=== PATIENT | female | born 1990 | race Caucasian/White ===

== ENCOUNTER 2019-05-14 04:56 | Inpatient (IN) | payer OTHER ==
[2019-05-14] MEDS ORDERED: Betamethasone Acetate/Betamethasone Sod Phosphate 30 MG/5 ML MDV IM ONE (07:04)
[2019-05-14] MEDS ORDERED: Sodium Chloride 0.9% 10 ML Syringe FLUSH PRN (07:04)
[2019-05-14] MEDS ORDERED: ceFAZolin 2 GM in Premix Bag 1 BAG IV ONE (07:15)
[2019-05-14] MEDS ORDERED: Lactated Ringers 1,000 ML IV SCH (07:15)
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
[2019-05-14] MEDS ORDERED: Oxytocin/Lactated Ringers 10 UNIT/1,000 ML BAG IV SCH ×2 (08:45→11:45)
--- NOTE | 2019-05-14 12:35 | PCM.DEL ---
L & D Note - General Info Date of Service: 05/14/19 - Delivery Note Labor: Spontaneous Delivery Outcome: Livebirth Delivery Method: Spontaneous Vaginal Delivery-Single Delivery Mode: Spontaneous Presentation: Right Occiput Anterior (SCOT) Nuchal Cord: None Anesthesia Type: None Amniotic Fluid Description: Clear Episiotomy Type: None Laceration: None Placenta: Intact, Spontaneous Cord: 3 Vessels Estimated Blood Loss: 200 Resuscitation Needed: Yes Villalba: Bulb Syringe, Stimulated, Warmed, Superior Used, Warmer Used Delivery Comments (Free Text/Narrative):: Patient quickly dilated to complete. AROM performed once complete and patient began pushing. After approximately 2-2.5 hours of pushing did start pitocin for augmentation. She then had better movement of baby. head delivered from SCOT presentation. No nuchal cord. With gentle traction shoulders and body delivered. Infant placed on maternal abdomen. Cord clamped and cut and then baby taken to warmer for assessment. Cord blood collected. Placenta allowed time to separate and expelled intact. Inspection of the perineum showed hemostatic 1st degree laceration which was not repaired. - General Info Date of Service: 05/14/19 - Patient Data Vitals - Most Recent: Last Vital Signs Temp 36.7 C 05/14/19 05:21 Pulse 78 05/14/19 05:21 Resp 18 05/14/19 05:21 BP 125/90 05/14/19 05:21 Pulse Ox 99 05/14/19 05:21 Weight - Most Recent: 74.021 kg Lab Results Last 24 Hours: Laboratory Results - last 24 hr 05/14/19 05/14/19 05/14/19 Range/Units 05:05 05:05 07:33 WBC 14.95 H (3.98-10.04) K/mm3 RBC 3.77 L (3.98-5.22) M/mm3 Hgb 12.3 (11.2-15.7) gm/dl Hct 36.1 (34.1-44.9) % MCV 95.8 H (79.4-94.8) fl MCH 32.6 H (25.6-32.2) pg MCHC 34.1 (32.2-35.5) g/dl RDW Std Deviation 41.6 (36.4-46.3) fL Plt Count 241 (182-369) K/mm3 MPV 11.7 (9.4-12.3) fl Neut % (Auto) 67.3 (34.0-71.1) % Lymph % (Auto) 22.3 (19.3-51.7) % [place] % (Auto) 9.4 (4.7-12.5) % Eos % (Auto) 0.5 L (0.7-5.8) Baso % (Auto) 0.1 (0.1-1.2) % Neut # (Auto) 10.07 H (1.56-6.13) K/mm3 Lymph # (Auto) 3.33 (1.18-3.74) K/mm3 [place] # (Auto) 1.40 H (0.24-0.36) K/mm3 Eos # (Auto) 0.07 (0.04-0.36) K/mm3 Baso # (Auto) 0.02 (0.01-0.08) K/mm3 Manual Slide Review Normal smear Urine Color Yellow (Yellow) Urine Appearance Clear (Clear) Urine pH 7.0 (5.0-8.0) Ur Specific [place] 1.015 (1.005-1.030) Urine Protein Negative (Negative) Urine Glucose (UA) Negative (Negative) Urine Ketones Negative (Negative) Urine Occult Blood 3+ H (Negative) Urine Nitrite Negative (Negative) Urine Bilirubin Negative (Negative) Urine Urobilinogen 0.2 (0.2-1.0) Ur Leukocyte Esterase 2+ H (Negative) Urine RBC 10-20 H (0-5) /hpf Urine WBC 5-10 H (0-5) /hpf Ur Squamous Epith Cells 5-10 H (0-5) /hpf Amorphous Sediment Few H (NOT SEEN) /hpf Urine Bacteria Few (FEW) /hpf Urine Mucus Few (FEW) /hpf Urine Opiates Screen Negative (SWXONR=658) Ur Buprenorphine Scrn Negative (CUTOFF=10) Ur Oxycodone Screen Negative (BPI0RN=625) Urine Methadone Screen Negative (KBDILI=010) Ur Propoxyphene Screen Negative (CHFTIZ=345) Ur Barbiturates Screen Negative (EHWGNS=880) Ur Tricyclics Screen Negative (QCPGCY=672) Ur Phencyclidine Scrn Negative (CUTOFF=25) Ur Amphetamine Screen Negative (XPODAZ=936) U Methamphetamines Scrn Negative (SXPENF=938) U Benzodiazepines Scrn Negative (DIKIVQ=584) U Cocaine Metab Screen Negative (QNYPSW=513) U Marijuana (THC) Screen Negative (CUTOFF=50) Med Orders - Current: Current Medications Cefazolin Sodium/Dextrose 1 gm (/ Premix) 50 mls @ 100 mls/hr IV Q8H [place] Lactated Ringer's (Ringers, Lactated) 1,000 mls @ 100 mls/hr IV ASDIRECTED [place]INA Last Admin: 05/14/19 08:20 Dose: 40 mls/hr Oxytocin/Lactated Ringer's (Pitocin In Lr 10 Units/1,000 Ml) 10 unit in 1,000 mls @ 500 mls/hr IV .CONTINUOUS CORINA Oxytocin/Lactated Ringer's (Pitocin In Lr 10 Units/1,000 Ml) 10 unit in 1,000 mls @ 12 mls/hr IV TITRATE CORINA; Protocol Last Titration: 05/14/19 12:00 Dose: 4 munits/min, 24 mls/hr Sodium Chloride (Saline Flush) 10 ml FLUSH ASDIRECTED PRN PRN Reason: Keep Vein Open Discontinued Medications Betamethasone Acet/Betameth SodPhos (Celestone Soluspan 6 Mg/Ml) 12 mg IM ONETIME ONE Stop: 05/14/19 07:05 Last Admin: 05/14/19 07:47 Dose: 12 mg Cefazolin Sodium/Dextrose 2 gm (/ Premix) 50 mls @ 100 mls/hr IV ONETIME ONE Stop: 05/14/19 07:44 Last Admin: 05/14/19 08:19 Dose: 100 mls/hr - Problem List & Annotations (1) 36 weeks gestation of SNOMED Code(s): 13309266 Code(s): Z3A.36 - 36 WEEKS GESTATION OF Status: Acute Current Visit: Yes (2) Normal labor SNOMED Code(s): 36158741 Code(s): O80 - ENCOUNTER FOR FULL-TERM UNCOMPLICATED DELIVERY; Z37.9 - OUTCOME OF DELIVERY, UNSPECIFIED Status: Acute Current Visit: Yes (3) Vaginal delivery SNOMED Code(s): 994512249 Code(s): O80 - ENCOUNTER FOR FULL-TERM UNCOMPLICATED DELIVERY Status: Acute Current Visit: Yes - Problem List Review Problem List Initiated/Reviewed/Updated: Yes - My Orders Last 24 Hours: My Active Orders 05/14/19 08:45 Oxytocin/Lactated Ringers [Pitocin in LR 10 Units/1,000 ML] 10 unit in 1,000 ml IV .CONTINUOUS 05/14/19 11:45 Oxytocin/Lactated Ringers [Pitocin in LR 10 Units/1,000 ML] 10 unit in 1,000 ml IV TITRATE - Assessment Assessment:: PPD#0 - Plan Plan:: * Routine cares * Breast feeding * Discharge home in 2 days
[2019-05-14] MEDS ORDERED: Witch Hazel Medicated Pads 40/Jar TOP PRN (13:24)
[2019-05-14] MEDS ORDERED: Acetaminophen 325 MG Tab PO PRN (13:24)
[2019-05-14] MEDS ORDERED: Benzocaine/Menthol 20%-0.5% Spray 56 GM Canister TOP PRN (13:24)
[2019-05-14] MEDS ORDERED: Ibuprofen 600 MG Tab PO PRN (13:24)
[2019-05-14] MEDS ORDERED: ceFAZolin 1 GM in Premix Bag 1 BAG IV SCH (15:15)
--- NOTE | 2019-05-15 03:48 | PCM.PNPP ---
- General Info Date of Service: 05/15/19 Functional Status: Reports: Pain Controlled, Tolerating Diet, Ambulating, Urinating - Review of Systems General: Reports: No Symptoms Pulmonary: Reports: No Symptoms Cardiovascular: Reports: No Symptoms Gastrointestinal: Reports: No Symptoms Genitourinary: Reports: No Symptoms Musculoskeletal: Reports: No Symptoms Neurological: Reports: No Symptoms - Patient Data Vital Signs - Most Recent: Last Vital Signs Temp 37.6 C 05/14/19 18:37 Pulse 74 05/14/19 21:47 Resp 16 05/14/19 21:47 BP 138/91 H 05/14/19 21:47 Pulse Ox 98 05/14/19 21:47 Weight - Most Recent: 74.021 kg I&O - Last 24 Hours: Intake & Output 05/14/19 05/14/19 05/15/19 14:59 22:59 06:59 Intake Total 2250 Balance 2250 Lab Results - Last 24 Hours: Laboratory Results - last 24 hr 05/14/19 05/14/19 05/14/19 Range/Units 05:05 05:05 07:33 WBC 14.95 H (3.98-10.04) K/mm3 RBC 3.77 L (3.98-5.22) M/mm3 Hgb 12.3 (11.2-15.7) gm/dl Hct 36.1 (34.1-44.9) % MCV 95.8 H (79.4-94.8) fl MCH 32.6 H (25.6-32.2) pg MCHC 34.1 (32.2-35.5) g/dl RDW Std Deviation 41.6 (36.4-46.3) fL Plt Count 241 (182-369) K/mm3 MPV 11.7 (9.4-12.3) fl Neut % (Auto) 67.3 (34.0-71.1) % Lymph % (Auto) 22.3 (19.3-51.7) % [place] % (Auto) 9.4 (4.7-12.5) % Eos % (Auto) 0.5 L (0.7-5.8) Baso % (Auto) 0.1 (0.1-1.2) % Neut # (Auto) 10.07 H (1.56-6.13) K/mm3 Lymph # (Auto) 3.33 (1.18-3.74) K/mm3 [place] # (Auto) 1.40 H (0.24-0.36) K/mm3 Eos # (Auto) 0.07 (0.04-0.36) K/mm3 Baso # (Auto) 0.02 (0.01-0.08) K/mm3 Manual Slide Review Normal smear Urine Color Yellow (Yellow) Urine Appearance Clear (Clear) Urine pH 7.0 (5.0-8.0) Ur Specific [place] 1.015 (1.005-1.030) Urine Protein Negative (Negative) Urine Glucose (UA) Negative (Negative) Urine Ketones Negative (Negative) Urine Occult Blood 3+ H (Negative) Urine Nitrite Negative (Negative) Urine Bilirubin Negative (Negative) Urine Urobilinogen 0.2 (0.2-1.0) Ur Leukocyte Esterase 2+ H (Negative) Urine RBC 10-20 H (0-5) /hpf Urine WBC 5-10 H (0-5) /hpf Ur Squamous Epith Cells 5-10 H (0-5) /hpf Amorphous Sediment Few H (NOT SEEN) /hpf Urine Bacteria Few (FEW) /hpf Urine Mucus Few (FEW) /hpf Urine Opiates Screen Negative (GDIZPV=868) Ur Buprenorphine Scrn Negative (CUTOFF=10) Ur Oxycodone Screen Negative (BKO1LB=524) Urine Methadone Screen Negative (EYMGGU=637) Ur Propoxyphene Screen Negative (RQKXSW=707) Ur Barbiturates Screen Negative (OCILIG=738) Ur Tricyclics Screen Negative (PUKAHR=249) Ur Phencyclidine Scrn Negative (CUTOFF=25) Ur Amphetamine Screen Negative (XEGPAY=968) U Methamphetamines Scrn Negative (KQGGFZ=199) U Benzodiazepines Scrn Negative (JUBHRY=422) U Cocaine Metab Screen Negative (SGCAGK=463) U Marijuana (THC) Screen Negative (CUTOFF=50) RPR (NONREACTIVE) 05/14/19 Range/Units 07:33 WBC (3.98-10.04) K/mm3 RBC (3.98-5.22) M/mm3 Hgb (11.2-15.7) gm/dl Hct (34.1-44.9) % MCV (79.4-94.8) fl MCH (25.6-32.2) pg MCHC (32.2-35.5) g/dl RDW Std Deviation (36.4-46.3) fL Plt Count (182-369) K/mm3 MPV (9.4-12.3) fl Neut % (Auto) (34.0-71.1) % Lymph % (Auto) (19.3-51.7) % [place] % (Auto) (4.7-12.5) % Eos % (Auto) (0.7-5.8) Baso % (Auto) (0.1-1.2) % Neut # (Auto) (1.56-6.13) K/mm3 Lymph # (Auto) (1.18-3.74) K/mm3 [place] # (Auto) (0.24-0.36) K/mm3 Eos # (Auto) (0.04-0.36) K/mm3 Baso # (Auto) (0.01-0.08) K/mm3 Manual Slide Review Urine Color (Yellow) Urine Appearance (Clear) Urine pH (5.0-8.0) Ur Specific [place] (1.005-1.030) Urine Protein (Negative) Urine Glucose (UA) (Negative) Urine Ketones (Negative) Urine Occult Blood (Negative) Urine Nitrite (Negative) Urine Bilirubin (Negative) Urine Urobilinogen (0.2-1.0) Ur Leukocyte Esterase (Negative) Urine RBC (0-5) /hpf Urine WBC (0-5) /hpf Ur Squamous Epith Cells (0-5) /hpf Amorphous Sediment (NOT SEEN) /hpf Urine Bacteria (FEW) /hpf Urine Mucus (FEW) /hpf Urine Opiates Screen (ZYHNFH=219) Ur Buprenorphine Scrn (CUTOFF=10) Ur Oxycodone Screen (TJY0BZ=413) Urine Methadone Screen (LDFILI=471) Ur Propoxyphene Screen (WCAWTA=927) Ur Barbiturates Screen (ZGWKJN=358) Ur Tricyclics Screen (UGPPUJ=517) Ur Phencyclidine Scrn (CUTOFF=25) Ur Amphetamine Screen (EJVBSN=848) U Methamphetamines Scrn (BVDKFH=312) U Benzodiazepines Scrn (BTGADT=934) U Cocaine Metab Screen (OUHEGV=257) U Marijuana (THC) Screen (CUTOFF=50) RPR Non-reactive (NONREACTIVE) Med Orders - Current: Current Medications Acetaminophen (Tylenol) 650 mg PO Q4H PRN PRN Reason: mild pain or fever Benzocaine/Menthol (Dermoplast Pain Relief [place]) 0 gm TOP ASDIRECTED PRN PRN Reason: Perineal Comfort Measure Fluoxetine HCl (Prozac) 20 mg PO DAILY CORINA Ibuprofen (Motrin) 600 mg PO Q6H PRN PRN Reason: Mild pain or fever Witch Jr (Tucks) 1 pad TOP ASDIRECTED PRN PRN Reason: Perineal Comfort Measure Discontinued Medications Betamethasone Acet/Betameth SodPhos (Celestone Soluspan 6 Mg/Ml) 12 mg IM ONETIME ONE Stop: 05/14/19 07:05 Last Admin: 05/14/19 07:47 Dose: 12 mg Cefazolin Sodium/Dextrose 2 gm (/ Premix) 50 mls @ 100 mls/hr IV ONETIME ONE Stop: 05/14/19 07:44 Last Admin: 05/14/19 08:19 Dose: 100 mls/hr Cefazolin Sodium/Dextrose 1 gm (/ Premix) 50 mls @ 100 mls/hr IV Q8H [place] Lactated Ringer's (Ringers, Lactated) 1,000 mls @ 100 mls/hr IV ASDIRECTED [place]INA Last Admin: 05/14/19 08:20 Dose: 40 mls/hr Oxytocin/Lactated Ringer's (Pitocin In Lr 10 Units/1,000 Ml) 10 unit in 1,000 mls @ 500 mls/hr IV .CONTINUOUS CORINA Last Admin: 05/14/19 13:23 Dose: 999 mls/hr Oxytocin/Lactated Ringer's (Pitocin In Lr 10 Units/1,000 Ml) 10 unit in 1,000 mls @ 12 mls/hr IV TITRATE [place]; Protocol Last Titration: 05/14/19 12:22 Dose: 999 mls/hr Sodium Chloride (Saline Flush) 10 ml FLUSH ASDIRECTED PRN PRN Reason: Keep Vein Open - Interaction Infant Disposition, : in Room with Family Infant Interaction: Holding Feeding: Attempted ; Nursed Fair/Poor Support Person: - Recovery Exam Fundal Tone: Firm Fundal Level: At Umbilicus Fundal Placement: Right Lochia Amount: Small Lochia Color: Rubra/Red Perineum Description: Intact, Minimal Bruising/Swelling Episiotomy/Laceration: None Bladder Status: Voiding Urinary Elimination: Voided - Exam General: Alert, Oriented, Cooperative GI/Abdominal Exam: Soft, Non-Tender Extremities: Normal Inspection Skin: Warm, Dry, Intact - Problem List & Annotations (1) 36 weeks gestation of SNOMED Code(s): 74126212 Code(s): Z3A.36 - 36 WEEKS GESTATION OF Status: Acute Current Visit: Yes (2) Normal labor SNOMED Code(s): 16171812 Code(s): O80 - ENCOUNTER FOR FULL-TERM UNCOMPLICATED DELIVERY; Z37.9 - OUTCOME OF DELIVERY, UNSPECIFIED Status: Acute Current Visit: Yes (3) Vaginal delivery SNOMED Code(s): 611380325 Code(s): O80 - ENCOUNTER FOR FULL-TERM UNCOMPLICATED DELIVERY Status: Acute Current Visit: Yes - Problem List Review Problem List Initiated/Reviewed/Updated: Yes - My Orders Last 24 Hours: My Active Orders 05/14/19 13:24 Activity as Tolerated [RC] PER UNIT ROUTINE Vital Signs [RC] 03,,15,21 Acetaminophen [Tylenol] 650 mg PO Q4H PRN Benzocaine/Menthol [Dermoplast Pain Relief [place]] See Dose Instructions TOP ASDIRECTED PRN Ibuprofen [Motrin] 600 mg PO Q6H PRN witch Jr [Tucks] 1 pad TOP ASDIRECTED PRN Assess Lochia [WOMSER] Per Unit Routine Assess Uterine Involution [WOMSER] Per Unit Routine Breast Pump [WOMSER] Per Unit Routine Heat Therapy [OM.PC] PRN Ice Therapy [OM.PC] Per Unit Routine Perineal Care [OM.PC] Per Unit Routine Peripheral IV Discontinue [OM.PC] Routine Sitz Bath [OM.PC] Per Unit Routine 05/14/19 Lunch Regular Diet [DIET] 05/15/19 09:00 FLUoxetine [PROzac] 20 mg PO DAILY 05/15/19 13:24 Heat Therapy [OM.PC] PRN - Assessment Assessment:: PPD#1 - Plan Plan:: * Routine cares * Breast feeding * Discharge home tomorrow
[2019-05-15] MEDS: FLUoxetine 20 MG Cap PO SCH (09:00)
--- NOTE | 2019-05-16 08:43 | PCM.PNPP ---
- General Info Date of Service: 05/16/19 Functional Status: Reports: Pain Controlled, Tolerating Diet, Ambulating, Urinating - Review of Systems General: Reports: No Symptoms Pulmonary: Reports: No Symptoms Cardiovascular: Reports: No Symptoms Gastrointestinal: Reports: No Symptoms Genitourinary: Reports: No Symptoms Musculoskeletal: Reports: No Symptoms Neurological: Reports: No Symptoms - Patient Data Vital Signs - Most Recent: Last Vital Signs Temp 36.6 C 05/16/19 04:12 Pulse 74 05/16/19 04:12 Resp 15 05/16/19 04:12 BP 132/98 H 05/16/19 04:12 Pulse Ox 99 05/16/19 04:12 Weight - Most Recent: 74.021 kg I&O - Last 24 Hours: Intake & Output 05/15/19 05/16/19 05/16/19 22:59 06:59 14:59 Intake Total 320 Balance 320 Med Orders - Current: Current Medications Acetaminophen (Tylenol) 650 mg PO Q4H PRN PRN Reason: mild pain or fever Benzocaine/Menthol (Dermoplast Pain Relief [place]) 0 gm TOP ASDIRECTED PRN PRN Reason: Perineal Comfort Measure Fluoxetine HCl (Prozac) 20 mg PO DAILY [facility] Last Admin: 05/15/19 09:00 Dose: 20 mg Ibuprofen (Motrin) 600 mg PO Q6H PRN PRN Reason: Mild pain or fever Last Admin: 05/16/19 02:39 Dose: 600 mg Witch Alondra (Tucks) 1 pad TOP ASDIRECTED PRN PRN Reason: Perineal Comfort Measure Discontinued Medications Betamethasone Acet/Betameth SodPhos (Celestone Soluspan 6 Mg/Ml) 12 mg IM ONETIME ONE Stop: 05/14/19 07:05 Last Admin: 05/14/19 07:47 Dose: 12 mg Cefazolin Sodium/Dextrose 2 gm (/ Premix) 50 mls @ 100 mls/hr IV ONETIME ONE Stop: 05/14/19 07:44 Last Admin: 05/14/19 08:19 Dose: 100 mls/hr Cefazolin Sodium/Dextrose 1 gm (/ Premix) 50 mls @ 100 mls/hr IV Q8H [place] Lactated Ringer's (Ringers, Lactated) 1,000 mls @ 100 mls/hr IV ASDIRECTED [facility] Last Admin: 05/14/19 08:20 Dose: 40 mls/hr Oxytocin/Lactated Ringer's (Pitocin In Lr 10 Units/1,000 Ml) 10 unit in 1,000 mls @ 500 mls/hr IV .CONTINUOUS [place] Last Admin: 05/14/19 13:23 Dose: 999 mls/hr Oxytocin/Lactated Ringer's (Pitocin In Lr 10 Units/1,000 Ml) 10 unit in 1,000 mls @ 12 mls/hr IV TITRATE [place]; Protocol Last Titration: 05/14/19 12:22 Dose: 999 mls/hr Sodium Chloride (Saline Flush) 10 ml FLUSH ASDIRECTED PRN PRN Reason: Keep Vein Open - Infant Interaction Infant Disposition, : [place] in Room with Family Infant Interaction: Holding Infant Infant Feeding: Attempted ; Nursed Fair/Poor Support Person: - Recovery Exam Fundal Tone: Firm Fundal Level: 1 Fingerbreadths Below Umbilicus Fundal Placement: Midline Lochia Amount: Small Lochia Color: Rubra/Red Perineum Description: Intact, Minimal Bruising/Swelling Episiotomy/Laceration: None Bladder Status: Voiding Urinary Elimination: Voided - Exam General: Alert, Oriented, Cooperative GI/Abdominal Exam: Soft, Non-Tender Extremities: Normal Inspection Skin: Warm, Dry, Intact - Problem List & Annotations (1) 36 weeks gestation of SNOMED Code(s): 50127480 Code(s): Z3A.36 - 36 WEEKS GESTATION OF Status: Acute Current Visit: Yes (2) Normal labor SNOMED Code(s): 48005680 Code(s): O80 - ENCOUNTER FOR FULL-TERM UNCOMPLICATED DELIVERY; Z37.9 - OUTCOME OF DELIVERY, UNSPECIFIED Status: Acute Current Visit: Yes (3) Vaginal delivery SNOMED Code(s): 477957539 Code(s): O80 - ENCOUNTER FOR FULL-TERM UNCOMPLICATED DELIVERY Status: Acute Current Visit: Yes - Problem List Review Problem List Initiated/Reviewed/Updated: Yes - My Orders Last 24 Hours: My Active Orders 05/15/19 09:00 FLUoxetine [PROzac] 20 mg PO DAILY 05/15/19 13:24 Heat Therapy [OM.PC] PRN 05/16/19 08:42 Ready for Discharge [RC] PER UNIT ROUTINE - Assessment Assessment:: PPD#2 - Plan Plan:: * Routine cares * Breast feeding * Discharge home today
--- NOTE | 2019-05-16 08:44 | PCM.DCSUM1 ---
Discharge Summary - Discharge Data Discharge Date: 05/16/19 Discharge Disposition: Home, Self-Care 01 Condition: Good - Referral to Home Health Primary Care Physician: Hazel Quan MD - Discharge Diagnosis/Problem(s) (1) 36 weeks gestation of SNOMED Code(s): 46372317 ICD Code: Z3A.36 - 36 WEEKS GESTATION OF Status: Acute Current Visit: Yes (2) Normal labor SNOMED Code(s): 32756429 ICD Code: O80 - ENCOUNTER FOR FULL-TERM UNCOMPLICATED DELIVERY; Z37.9 - OUTCOME OF DELIVERY, UNSPECIFIED Status: Acute Current Visit: Yes (3) Vaginal delivery SNOMED Code(s): 934104657 ICD Code: O80 - ENCOUNTER FOR FULL-TERM UNCOMPLICATED DELIVERY Status: Acute Current Visit: Yes - Patient Summary/Data Complications: None Consults: None Recommended Follow-up Testing/Procedures: Follow up in 3 weeks for check Hospital Course: 29 y/o at 36 0/7 wks who presented in labor. Made rapid progress from 4 cm to complete dilation. AROM done when complete and began pushing. Eventually underwent an uncomplicated . See delivery note. did well and was discharged home on PPD#2 - Patient Instructions Diet: Regular Diet as Tolerated Activity: As Tolerated Activity, Other: Pelvic rest for 6 weeks Driving: May Drive Today Showering/Bathing: May Shower Showering/Bathing, Other: May Bathe Notify Provider of: Fever, Increased Pain, Swelling and Redness, Drainage, Nausea and/or Vomiting - Discharge Plan *PRESCRIPTION DRUG MONITORING PROGRAM REVIEWED*: Not Applicable *COPY OF PRESCRIPTION DRUG MONITORING REPORT IN PATIENT NOEMI: Not Applicable Home Medications: Home Meds FLUoxetine HCl [Prozac] 20 mg PO DAILY 05/14/19 [History] No122/Iron/Folic Acid [ Multi Tablet] 1 tab PO DAILY 05/14/19 [ History] Ibuprofen [Motrin] 600 mg PO Q6H PRN tablet 05/16/19 [Rx] Referrals: Iman Acevedo MD [Physician] - (3 weeks for check ) - Discharge Summary/Plan Comment DC Time >30 min.: No - Patient Data Vitals - Most Recent: Last Vital Signs Temp 36.6 C 05/16/19 04:12 Pulse 74 05/16/19 04:12 Resp 15 05/16/19 04:12 BP 132/98 H 05/16/19 04:12 Pulse Ox 99 05/16/19 04:12 Weight - Most Recent: 74.021 kg I&O - Last 24 hours: Intake & Output 05/15/19 05/16/19 05/16/19 22:59 06:59 14:59 Intake Total 320 Balance 320 Med Orders - Current: Current Medications Acetaminophen (Tylenol) 650 mg PO Q4H PRN PRN Reason: mild pain or fever Benzocaine/Menthol (Dermoplast Pain Relief [place]) 0 gm TOP ASDIRECTED PRN PRN Reason: Perineal Comfort Measure Fluoxetine HCl (Prozac) 20 mg PO DAILY CORINA Last Admin: 05/15/19 09:00 Dose: 20 mg Ibuprofen (Motrin) 600 mg PO Q6H PRN PRN Reason: Mild pain or fever Last Admin: 05/16/19 02:39 Dose: 600 mg Witch Alondra (Tucks) 1 pad TOP ASDIRECTED PRN PRN Reason: Perineal Comfort Measure Discontinued Medications Betamethasone Acet/Betameth SodPhos (Celestone Soluspan 6 Mg/Ml) 12 mg IM ONETIME ONE Stop: 05/14/19 07:05 Last Admin: 05/14/19 07:47 Dose: 12 mg Cefazolin Sodium/Dextrose 2 gm (/ Premix) 50 mls @ 100 mls/hr IV ONETIME ONE Stop: 05/14/19 07:44 Last Admin: 05/14/19 08:19 Dose: 100 mls/hr Cefazolin Sodium/Dextrose 1 gm (/ Premix) 50 mls @ 100 mls/hr IV Q8H CORINA Lactated Ringer's (Ringers, Lactated) 1,000 mls @ 100 mls/hr IV ASDIRECTED CORINA Last Admin: 05/14/19 08:20 Dose: 40 mls/hr Oxytocin/Lactated Ringer's (Pitocin In Lr 10 Units/1,000 Ml) 10 unit in 1,000 mls @ 500 mls/hr IV .CONTINUOUS CORINA Last Admin: 05/14/19 13:23 Dose: 999 mls/hr Oxytocin/Lactated Ringer's (Pitocin In Lr 10 Units/1,000 Ml) 10 unit in 1,000 mls @ 12 mls/hr IV TITRATE CORINA; Protocol Last Titration: 05/14/19 12:22 Dose: 999 mls/hr Sodium Chloride (Saline Flush) 10 ml FLUSH ASDIRECTED PRN PRN Reason: Keep Vein Open
[2019-05-16] MEDS: FLUoxetine 20 MG Cap PO SCH (09:33)
== END 2019-05-16 12:05 | disposition home or self-care (01) | DRG 807 ==
LOC: JD.OBCHECK 04:56 → JD.OB 04:56 → JD.OBCHECK 07:20 → OBSVTOIN 12:21 → JD.MS 12:22 → JD.OB 15:00
PROVIDERS: ADMIT Obstetrics & Gynecology; ATTEND Obstetrics & Gynecology
PROC: 10E0XZZ Delivery of Products of Conception, External Approach (ICD-10-PCS; principal; 2019-05-14)
PROC: 10907ZC Drainage of Amniotic Fluid, Therapeutic from Products of Conception, Via Natural or Artificial Opening (ICD-10-PCS; 2019-05-14)
DX: O99.344 Other mental disorders complicating childbirth (principal); Z37.0 Single live birth; O70.0 First degree perineal laceration during delivery; F41.9 Anxiety disorder, unspecified; F32.9 Major depressive disorder, single episode, unspecified; Z88.0 Allergy status to penicillin; Z91.09 Other allergy status, other than to drugs and biological substances; Z3A.36 36 weeks gestation of pregnancy
CPT/HCPCS: 36415; 59025; 59409; 80306; 81001; 85025; 86592; 87086; A9270-GY; J0690; J0702; J2590; J7120

== ENCOUNTER 2021-06-21 01:55 | Inpatient (IN) | payer OTHER ==
[2021-06-21] MEDS ORDERED: Nalbuphine 10 MG/1 ML Vial IVPUSH PRN (02:25)
[2021-06-21] MEDS ORDERED: Ondansetron 4 MG/2 ML SDV IVPUSH PRN (02:25)
[2021-06-21] MEDS ORDERED: Sodium Chloride 0.9% 10 ML Syringe FLUSH PRN (02:25)
[2021-06-21] MEDS ORDERED: Oxytocin/Lactated Ringers 10 UNIT/1,000 ML BAG IV SCH ×2 (02:30)
[2021-06-21] MEDS ORDERED: Lactated Ringers 1,000 ML IV SCH (02:30)
[2021-06-21] MEDS ORDERED: Benzocaine/Menthol 20%-0.5% Spray 78 GM Cannister TOP PRN (04:12)
[2021-06-21] MEDS ORDERED: Docusate Sodium 100 MG Cap PO PRN (04:12)
[2021-06-21] MEDS ORDERED: Acetaminophen 325 MG Tab PO PRN (04:12)
[2021-06-21] MEDS ORDERED: Witch Hazel Medicated Pads 40/Jar TOP PRN (04:12)
[2021-06-21] MEDS: Ibuprofen 600 MG Tab PO PRN ×2 (05:25→14:22)
[2021-06-21] MEDS ORDERED: Sodium Chloride 0.9% 10 ML Syringe FLUSH SCH (09:00)
== END 2021-06-22 10:35 | disposition home or self-care (01) | DRG 807 ==
LOC: JD.OBCHECK 01:55 → JD.OB 01:59 → JD.OBCHECK 02:24 → JD.OB 02:25 → OBSVTOIN 03:31 → JD.OB 03:32
PROVIDERS: ADMIT Obstetrics & Gynecology; ATTEND Obstetrics & Gynecology
PROC: 10E0XZZ Delivery of Products of Conception, External Approach (ICD-10-PCS; principal; 2021-06-21)
PROC: 10907ZC Drainage of Amniotic Fluid, Therapeutic from Products of Conception, Via Natural or Artificial Opening (ICD-10-PCS; 2021-06-21)
DX: O99.344 Other mental disorders complicating childbirth (principal); Z37.0 Single live birth; Z3A.38 38 weeks gestation of pregnancy; R51.9 Headache, unspecified; F41.9 Anxiety disorder, unspecified; F32.A Depression, unspecified; O99.892 Other specified diseases and conditions complicating childbirth; Z88.0 Allergy status to penicillin; Z91.040 Latex allergy status
CPT/HCPCS: 36415; 59025; 59409; 85025; 86592; 86850; 86900; 86901; A9270-GY; J2590